=== PATIENT | male | born 1970 | race Caucasian/White ===

== ENCOUNTER → 2022-01-02 13:57 | Outpatient (CLI) | payer OTHER, SELFPAY ==
--- NOTE | 2022-01-02 14:01 | DI.RAD.S_ITS ---
PROCEDURE: XR LUMBAR SPINE MIN 4V INDICATIONS: Right-sided facetogenic low back pain TECHNIQUE: 5 views of the lumbar spine acquired, including oblique views. COMPARISON: None. FINDINGS: Bones: 5 nonrib-bearing vertebrae are present. There is normal bony alignment. No vertebral body compression fractures. No suspicious bony lesions. Disc space narrowing and mild hypertrophic facet joints noted in the lower lumbar spine. Both oblique images are normal. Soft tissues: Overlying bowel gas pattern is normal. No suspicious soft tissue calcifications. IMPRESSION: Mild lower lumbar spine degenerative changes Approved by: Alexys Clay M.D. on 01/02/2022 at 14:11
== END ==
PROVIDERS: PCP Family Medicine; Referring Provider Physical Medicine & Rehabilitation; Visit Provider Physical Medicine & Rehabilitation
DX: M47.27 Other spondylosis with radiculopathy, lumbosacral region (principal); M47.816 Spondylosis without myelopathy or radiculopathy, lumbar region
CPT/HCPCS: 72110; 99214

== ENCOUNTER → 2022-01-11 08:28 | Outpatient (CLI) | payer OTHER, SELFPAY ==
--- NOTE | 2022-01-11 08:32 | DI.MRI.S_ITS ---
PROCEDURE: MR LUMBAR SPINE WO CON INDICATIONS: Right-sided facetogenic low back pain TECHNIQUE: Noncontrast sagittal T1 spin echo and T2 fast echo, sagittal STIR, axial T1 and T2 fast spin echo through the lumbar spine. Axial and oblique coronal T1 spin echo and STIR through the sacrum. In cases with scoliosis, additional coronal T2 fast spin echo may be performed. COMPARISON: None. FINDINGS: Image quality: Excellent. Alignment and Curvature: There is normal bony alignment. Bone Marrow: Marrow is of normal overall signal. No acute vertebral body compression fractures. No sacral fractures. Spinal Cord: Conus medullaris terminates at the L1 level. Visualized cord demonstrates normal signal and size. Paraspinous Soft Tissues: No paravertebral masses. T12-L1: Normal appearance. L1-L2: Normal appearance. L2-L3: Normal appearance. L3-L4: Normal appearance. L4-L5: Disc space narrowing and bilateral hypertrophic facet joints present. There is an asymmetric right disc bulge resulting in mild effacement of the right lateral recess. Mild central stenosis present. No foraminal stenosis L5-S1: Disc space narrowing with circumferential disc bulge. No central or foraminal stenosis. IMPRESSION: 1. Degenerative disc disease and arthropathy in the lower lumbar spine results in mild effacement of the right lateral recess at L4-5 Approved by: Alexys Clay M.D. on 01/11/2022 at 13:25
== END ==
PROVIDERS: PCP Family Medicine; Referring Provider Physical Medicine & Rehabilitation; Visit Provider Physical Medicine & Rehabilitation
DX: M47.816 Spondylosis without myelopathy or radiculopathy, lumbar region (principal); M47.27 Other spondylosis with radiculopathy, lumbosacral region; M51.36 Other intervertebral disc degeneration, lumbar region
CPT/HCPCS: 72148